=== PATIENT | female | born 1985 ===

== ENCOUNTER → 2019-11-04 | Outpatient (CLI) | payer BC ==
--- NOTE | 2019-11-04 08:28 | US ---
EXAMINATION TYPE: US thyroid st tissue head/neck DATE OF EXAM: 11/04/2019 COMPARISON: NONE CLINICAL HISTORY: R78.9 Finding of unspecified substance, not normal. GLAND SIZE: Right Lobe: 4.6 x 1.4 x 1.6 cm Overall Parenchyma: homogenous Left Lobe: 4.7 x 1.5 x 1.2 cm Overall Parenchyma: mildly heterogeneous Isthmus Thickness: 0.2 cm NODULES RIGHT: # of nodules measured on right: 1 1. 0.2 X 0.2 x 0.1 cm hypoechoic cystic nodule at the mid medial pole with poorly defined margins. This nodule is wider than tall and shows no intranodular vascularity. LEFT: multiple small hypoechoic oval areas too numerous too count ISTHMUS: # of nodules measured in the isthmus: 0 Bilateral neck scanned: no evidence of lymphadenopathy. IMPRESSION: Solitary punctate 2 mm right thyroid nodule. No greater than 1 cm thyroid nodule seen.
== END | disposition home or self-care (01) ==
LOC: RADUSWWP 06:51
PROVIDERS: ATTEND Internal Medicine
DX: E04.1 Nontoxic single thyroid nodule (principal)
CPT/HCPCS: 76536

== ENCOUNTER → 2021-03-11 | Outpatient (CLI) | payer BC ==
--- NOTE | 2021-03-11 16:51 | US ---
EXAMINATION TYPE: US thyroid st tissue head/neck DATE OF EXAM: 03/11/2021 COMPARISON: US 11/04/19 CLINICAL HISTORY: E04.1 Thyroid Nodule. GLAND SIZE: Right Lobe: 4.6 x 1.9 x 1.2 cm Overall Parenchyma: heterogenous Left Lobe: 5.1 x 1.5 x 1.4 cm Overall Parenchyma: heterogeneous Isthmus Thickness: 0.3 cm NODULES RIGHT: # of nodules measured on right: 3 1. 0.6 X 0.9 x 0.3 cm, mid medial, cystic or almost completely cystic, anechoic nodule, which is wi pepe than tall, with smooth margins, without echogenic foci. Prior size: 0.2 x 0.2 x 0.1 cm 2. 0.9 X 0.6 x 0.3 cm, upper lateral, cystic or almost completely cystic, anechoic nodule, which is wider than tall, with smooth margins, without echogenic foci. Prior size: Not seen previously 3. 0.3 X 0.3 x 1.9 cm, lower medial, cystic or almost completely cystic, anechoic nodule, which is wider than tall, with smooth margins, without echogenic foci. Prior size: Not seen previously LEFT: # of nodules measured on left: 1. 0.4 X 0.3 x 0.2 cm, upper lateral, cystic or almost completely cystic, anechoic nodule, which is wider than tall, with smooth margins, without echogenic foci. Prior size: Not seen previously ISTHMUS: # of nodules measured in the isthmus: 0 Bilateral neck scanned, Left neck - 2 hypoechoic areas seen. These are possible lymph nodes. 1) 0.7 x 0.6 x 0.4 cm 2) 0.9 x 0.8 x 0.4 cm Very heterogeneous thyroid gland L>R IMPRESSION: Multiple bilateral cystic structures. The largest is in the right lobe measuring 0.9 x 0.6 x 0.3 cm. At least 2 hypoechoic areas in the left cervical region are most likely lymph nodes. These are most l ikely reactive lymph nodes. 2017 ACR TI-RADS LEVEL: 1 *Highest TI-RADS level nodule reported
== END | disposition home or self-care (01) ==
LOC: RADUSWWP 09:20
PROVIDERS: ATTEND Internal Medicine
DX: E04.1 Nontoxic single thyroid nodule (principal)
CPT/HCPCS: 76536

== ENCOUNTER → 2021-11-29 | Outpatient (CLI) | payer BC ==
--- NOTE | 2021-11-29 10:33 | US ---
EXAMINATION TYPE: US thyroid st tissue head/neck DATE OF EXAM: 11/29/2021 COMPARISON: 03/11/2021 CLINICAL HISTORY: 36-year-old female E04.2. Follow up to prior exam TECHNIQUE: Multiple sonographic images of the thyroid gland are obtained. FINDINGS: GLAND SIZE: Right Lobe: 4.8 x 1.7 x 1.7 cm Overall Parenchyma: heterogenous Left Lobe: 5.0 x 1.7 x 1.4 cm Overall Parenchyma: heterogeneous Isthmus Thickness: 0.3 cm NODULES RIGHT: # of nodules measured on right: 1 1. 0.3 X 0.3 x 0.3 cm, lower mid, solid or almost completely solid, hypoechoic TR 4 nodule, which i s same, with ill-defined margins, without echogenic foci. Prior size: 0.3 x 0.3 x 0.2 cm The 9 mm mid pole benign cyst seen previously is no longer identified. LEFT: # of nodules measured on left: 1 1. 0.6 X 0.3 x 0.3 cm, lower lateral, solid or almost completely solid, hypoechoic TR 4 nodule, whi ch is wider than tall, with ill-defined margins, without echogenic foci. Prior size: 0.4 x 0.3 x 0.2 cm ISTHMUS: # of nodules measured in the isthmus: 0 Bilateral neck scanned, Left neck lymph node measuring 1.2 x 0.6 x 0.4 cm (versus 9 x 6 x 4 mm, prev iously). IMPRESSION: 1. A couple small TR4 nodules in the thyroid gland, largest measuring 6 mm on the left versus 4 mm, p reviously. The others are unchanged. A 9 mm cyst seen previously on the right has resolved. 2. A prominent but nonenlarged lymph node along the left side of the neck is stable to minimal larger at 12 x 6 mm (versus a 9 x 6 mm, previously). Likely reactive/benign.
== END | disposition home or self-care (01) ==
LOC: RADUSWWP 09:35
PROVIDERS: ATTEND Internal Medicine Endocrinology, Diabetes & Metabolism
DX: E04.2 Nontoxic multinodular goiter (principal)
CPT/HCPCS: 76536